=== PATIENT | female | born 1990 | race Caucasian/White ===

== ENCOUNTER 2023-02-11 22:51 | Emergency (ER) | payer OTHER ==
[~2023-02-11] VITALS: Ht 160 cm; Wt 68.0 kg
[2023-02-11 23:11] VITALS: BP_SYST 128; PULSE 131; RESP 20; TEMP 100.7; O2SAT 98
[2023-02-11] MEDS ORDERED: NACL 0.9% 1,000 ML IV ONE (23:30)
[2023-02-11] MEDS ORDERED: KETOROLAC TROMETHAMINE 30 MG VIAL IVP ONE (23:30)
[2023-02-12 00:40] LABS: BILIRUBIN,URINE NEGATIVE (NEGATIVE); BLOOD, URINE 1+ (NEGATIVE); CLARITY/URINE SL CLOUDY (CLEAR); COLOR,URINE YELLOW (YELLOW); GLUCOSE,URINE TRACE (NEGATIVE); KETONES,URINE NEGATIVE (NEGATIVE); LEUKOCYTE ESTERASE ,URINE TRACE (NEGATIVE); NITRITE, URINE POSITIVE (NEGATIVE); PROTEIN URINE TRACE (NEGATIVE); UROBILINOGEN,URINE 0.2 (0.2-1.0)
[2023-02-12] MEDS ORDERED: NEOM10SO7 EACH EAR (00:51)
[2023-02-12] MEDS ORDERED: IBUP-1969 PO (00:51)
[2023-02-12] MEDS ORDERED: CIPR500T5 PO (00:51)
[2023-02-12 00:56] LABS: BACTERIA,URINE MANY /HPF (None Seen); WBC,URINE >100 /HPF (0-3)
[2023-02-12 00:57] LABS: COVID19 ANTIGEN SOFIA FIA NEGATIVE (NEGATIVE)
[2023-02-12 01:00] LABS: INFLUENZA TYPE A Negative (NEGATIVE); INFLUENZA TYPE B NEGATIVE (NEGATIVE)
[2023-02-12 03:40] VITALS: BP_SYST 135; PULSE 106; RESP 19; TEMP 98.9; O2SAT 96
== END 2023-02-12 03:41 | disposition home or self-care (01) ==
LOC: SED 22:51
DX: H60.93 Unspecified otitis externa, bilateral (principal); R50.9 Fever, unspecified; N39.0 Urinary tract infection, site not specified; M79.10 Myalgia, unspecified site; Z79.899 Other long term (current) drug therapy; Z20.822 Contact with and (suspected) exposure to COVID-19
CPT/HCPCS: 99283; 87426; 81000; 81001; 87086; 36415; 87804 ×2; 96374; 96361; 81015; J1885; J7030